=== PATIENT | male | born 2000 | race African-American/Black ===

== ENCOUNTER 2020-11-13 09:15 | Emergency (ER) | payer OTHER ==
[2020-11-13 11:57] LABS: MONOSPOT (MONONUCLEOSIS) NEGATIVE (NEGATIVE)
[2020-11-13] MEDS ORDERED: CORTISPORIN-TC10 M1 AS (12:30)
[2020-11-14] MEDS ORDERED: AUGMENTIN 500-1 EACH PO (17:18)
== END 2020-11-13 12:39 | disposition home or self-care (01) ==
LOC: FER 09:15
PROVIDERS: Emergency Medicine
DX: J02.9 Acute pharyngitis, unspecified (principal); H61.22 Impacted cerumen, left ear
CPT/HCPCS: 86308; 87077; 87880; 99283; J8540

== ENCOUNTER 2020-11-14 14:02 | Emergency (ER) | payer OTHER ==
[~2020-11-14 14:02] MED LIST: CORTISPORIN-TC10 M1 AS
[2020-11-14 15:37] LABS: BASOPHIL 0.2 % (0-2); EOSINOPHIL 0 % (0-5); HCT 41.5 % (42.0-52.0); HGB 14.6 g/dl (13.2-18.0); LYMPHOCYTE 7.9 % (15-48); MCH 31.3 pg (25.0-31.0); MCHC 35.2 g/dL (32.0-36.0); MCV 88.9 fL (78.0-100.0); MONOCYTE 9.2 % (0-12); MPV 9.5 fL (6.0-9.5); NEUTROPHIL 82.3 % (41-80); NRBC 0; PLT 205 K/uL (150-400); RBC 4.67 M/uL (4.70-6.00); RDW 11.8 % (11.5-14.0); WBC 16.6 K/uL (4.0-10.5)
[2020-11-14 15:49] LABS: BUN/CREAT RATIO (CALC) 13.8 RATIO; CREATININE 0.8 mg/dL (0.67-1.17); POTASSIUM 3.3 mmol/L (3.5-5.1)
[2020-11-14 16:02] LABS: CORONAVIRUS 2019 SARS-COV-2 NEGATIVE (NEGATIVE); INFLUENZA A NAA NEGATIVE (NEGATIVE)
[2020-11-14] MEDS ORDERED: AUGMENTIN 500-1 EACH PO (17:18)
== END 2020-11-14 17:50 | disposition home or self-care (01) ==
LOC: FER 14:02
PROVIDERS: Emergency Medicine
DX: J03.90 Acute tonsillitis, unspecified (principal); H92.02 Otalgia, left ear; Z20.822 Contact with and (suspected) exposure to COVID-19
CPT/HCPCS: 36415; 70491; 80048; 85025; J0696; J1100; Q9967; U0002